=== PATIENT | male | born 1970 | race Caucasian/White ===

== ENCOUNTER 2018-04-28 11:57 | Inpatient (IN) | payer OTHER ==
[~2018-04-28] VITALS: Ht 175.3 cm; Wt 86.4 kg
[2018-04-28] MEDS ORDERED: PANT20TA PO (13:16)
[2018-04-28] MEDS: MORPHINE SULFATE 4 MG/ML SYRINGE IVP ONE ×2 (15:14→16:29)
[2018-04-28] MEDS ORDERED: KETOROLAC TROMETHAMINE 30 MG/ML VIAL IM ONE (15:30)
[2018-04-28] MEDS ORDERED: SODIUM CHLORIDE 0.9% 100 ML ONE (15:44)
[2018-04-28] MEDS ORDERED: IOVERSOL 320 MG/ML 100 ML VIAL ONE (15:44)
[2018-04-28] MEDS ORDERED: FAMOTIDINE 10 MG/ML 2 ML VIAL IVP ONE (15:45)
[2018-04-28] MEDS ORDERED: ONDANSETRON HCL 4 MG/2 ML VIAL IVP ONE (15:45)
[2018-04-28] MEDS ORDERED: PANTOPRAZOLE SODIUM 40 MG/VIAL IVP ONE (15:45)
[2018-04-28 15:51] LABS: APPEARANCE,URINE CLOUDY (CLEAR); BILIRUBIN,URINE NEGATIVE (NEGATIVE); GLUCOSE, URINE (UA) NEGATIVE (NEGATIVE); KETONES,URINE NEGATIVE (NEGATIVE); LEUKOCYTE ESTERASE ,URINE NEGATIVE (NEGATIVE); NITRATE,URINE NEGATIVE (NEGATIVE); OCCULT BLOOD,URINE SMALL (NEGATIVE); PH,URINE 5.5 (5.0-8.0); PROTEIN,URINE SEE CONFIRM (NEGATIVE); UROBILINOGEN,URINE 0.2 mg/dL (<=1.0)
[2018-04-28] MEDS ORDERED: LORazepam 2 MG/ML VIAL IM ONE (16:00)
[2018-04-28 16:24] LABS: BASOPHILS % (AUTO) 0.8 % (0.0-2.0); EOSINOPHILS % (AUTO) 0 % (1.0-6.0); HEMATOCRIT 43.2 % (41-53); HEMOGLOBIN 14.7 g/dL (13.5-17.5); LYMPHOCYTES # (AUTO) 1.1 K/uL (1.0-4.8); LYMPHOCYTES % (AUTO) 11.5 % (22.0-44.0); MEAN CORPUSCULAR HEMOGLOBIN 27.6 pg (26.0-34.0); MEAN CORPUSCULAR HGB CONC 34.1 G/dL (31.0-37.0); MEAN CORPUSCULAR VOLUME 81 fL (80-100); MONOCYTES # (AUTO) 0.5 K/uL (0.1-1.0); MONOCYTES % (AUTO) 4.7 % (2.0-9.0); NEUTROPHILS # (AUTO) 8.1 K/uL (1.8-7.7); PLATELET COUNT (AUTO) 283 K/uL (150-450); RED BLOOD CELL COUNT(AUTO) 5.32 MIL/uL (4.50-5.90); RED CELL DISTRIBUTION WIDTH 17.7 % (11.5-14.5)
[2018-04-28 16:32] LABS: SULFOSALICYLIC ACID,URINE 4+ (Negative)
[2018-04-28 16:33] LABS: RBC,URINE 0-2 /HPF (0-2)
[2018-04-28 16:34] LABS: BACTERIA,URINE Rare /HPF (None Seen); SQUAMOUS EPITHELIAL CELL,UR Few /LPF (None Seen); WBC,URINE 0-2 /HPF (0-5)
[2018-04-28 16:39] LABS: CALCIUM, TOTAL 8.5 mg/dL (8.8-10.5); CREATININE 1.38 mg/dL (0.60-1.30); POTASSIUM 3.9 mmol/L (3.5-5.1)
[2018-04-28 16:44] LABS: ALBUMIN 4.2 g/dL (3.4-5.0); BILIRUBIN,TOTAL 0.5 mg/dL (0.1-1.0)
[2018-04-28] MEDS ORDERED: SODIUM CHLORIDE 0.9% 1,000 ML IV ONE ×2 (17:00→18:00)
[2018-04-28] MEDS ORDERED: FOLIC ACID 1 MG TABLET PO ONE (18:00)
[2018-04-28] MEDS ORDERED: DEXTROSE 5%-0.9% SODIUM CHL 1,000 ML IV ONE (18:00)
[2018-04-28] MEDS ORDERED: THIAMINE HCL 100 MG TABLET PO ONE (18:00)
[2018-04-28] MEDS ORDERED: MORPHINE SULFATE 4 MG/ML SYRINGE IVP ONE (18:00)
[2018-04-28] MEDS ORDERED: METOCLOPRAMIDE HCL 5 MG/ML 2 ML VIAL IVP ONE (18:45)
[2018-04-28] MEDS ORDERED: THIAMINE HCL 100 MG/ML 2ML VIAL IVP ONE (18:45)
[2018-04-28] MEDS ORDERED: DiphenhydrAMINE HCL 50 MG/ML VIAL IVP ONE (18:45)
[2018-04-28] MEDS ORDERED: FOLIC ACID 5 MG/ML 10 ML VIAL IVP ONE (18:45)
[2018-04-28 19:11] LABS: PROTHROMBIN TIME 10.1 SEC (9.4-11.6)
[2018-04-28] MEDS ORDERED: 0.9% SODIUM CHLORIDE 10 ML SYRINGE IVP PRN (19:15)
[2018-04-28] MEDS ORDERED: MORPHINE SULFATE 2 MG/ML SYRINGE IVP PRN ×2 (19:15→23:00)
[2018-04-28] MEDS ORDERED: PANTOPRAZOLE SODIUM 80 MG in SODIUM CHLORIDE 0.9% 100 ML IV SCH (19:15)
[2018-04-28] MEDS ORDERED: ACETAMINOPHEN 325 MG TABLET PO PRN (19:15)
[2018-04-28] MEDS ORDERED: ONDANSETRON HCL 4 MG/2 ML VIAL IVP PRN ×2 (19:15→23:00)
[2018-04-28 21:36] VITALS: BP 143/74
[2018-04-28] MEDS: LORazepam 2 MG/ML VIAL IVP PRN (21:39)
[2018-04-28] MEDS ORDERED: ZOLPIDEM TARTRATE 5 MG TABLET PO PRN (23:00)
[2018-04-28] MEDS ORDERED: HYDROCODONE/ACETAMINOPHEN 5-325 MG TABLET PO PRN (23:00)
[2018-04-28] MEDS ORDERED: MAGNESIUM SULFATE 2 GM, MVI, ADULT NO.1 WITH VIT K 10 ML, THIAMINE HCL 100 MG, FOLIC AC... IV ONE ×5 (23:00)
[2018-04-28] MEDS ORDERED: MAGNESIUM HYDROXIDE SUSPENSION 30 ML UDCUP PO PRN (23:00)
[2018-04-28] MEDS ORDERED: BISACODYL 10 MG RECTAL RECTAL SUPPOSITORY PR PRN (23:00)
[2018-04-28] MEDS: ChlordiazePOXIDE HCL 25 MG CAPSULE PO PRN (23:25)
[2018-04-28 23:30] VITALS: BP 145/76
[2018-04-29] MEDS: ChlordiazePOXIDE HCL 25 MG CAPSULE PO PRN (02:05)
[2018-04-29] MEDS ORDERED: PANTOPRAZOLE SODIUM 80 MG in SODIUM CHLORIDE 0.9% 100 ML IV SCH ×2 (03:00→10:50)
[2018-04-29] MEDS: LORazepam 2 MG/ML VIAL IVP PRN ×3 (03:40→22:57)
[2018-04-29 03:45] VITALS: BP 141/78
[2018-04-29 06:25] LABS: BASOPHILS % (AUTO) 0.4 % (0.0-2.0); EOSINOPHILS % (AUTO) 0 % (1.0-6.0); HEMATOCRIT 34.5 % (41-53); HEMOGLOBIN 11.8 g/dL (13.5-17.5); LYMPHOCYTES % (AUTO) 17.5 % (22.0-44.0); MEAN CORPUSCULAR HGB CONC 34.1 G/dL (31.0-37.0); MEAN CORPUSCULAR VOLUME 82 fL (80-100); MONOCYTES # (AUTO) 0.8 K/uL (0.1-1.0); MONOCYTES % (AUTO) 13.8 % (2.0-9.0); NEUTROPHILS # (AUTO) 3.7 K/uL (1.8-7.7); NEUTROPHILS % (AUTO) 68.3 % (40.0-70.0); PLATELET COUNT (AUTO) 178 K/uL (150-450); RED CELL DISTRIBUTION WIDTH 17.5 % (11.5-14.5)
[2018-04-29 06:54] LABS: ALANINE AMINOTRANSFERASE 32 U/L (12-78); ALBUMIN 3.3 g/dL (3.4-5.0); ALKALINE PHOSPHATASE 119 U/L (46-116); ANION GAP 8 mmol/L (8-16); ASPARTATE AMINOTRANSFERASE 58 U/L (15-37); BILIRUBIN,TOTAL 0.8 mg/dL (0.1-1.0); CALCIUM, TOTAL 7.8 mg/dL (8.8-10.5); CARBON DIOXIDE 27 mmol/L (22-29); CHLORIDE 94 mmol/L (98-107); CREATININE 0.93 mg/dL (0.60-1.30); GLOMERULAR FILTR. RATE CALC > 60 mL/min (>60); GLUCOSE,RANDOM 104 mg/dL (70-110); SODIUM SERUM 129 mmol/L (136-145); TOTAL PROTEIN, SERUM 7.3 g/dL (6.4-8.2); UREA NITROGEN, BLOOD 16 mg/dL (7-18)
[2018-04-29] MEDS ORDERED: ChlordiazePOXIDE HCL 25 MG CAPSULE PO PRN (07:00)
[2018-04-29 07:52] VITALS: BP 136/54
[2018-04-29] MEDS: DOCUSATE SODIUM 100 MG CAPSULE PO SCH ×2 (09:04→20:27)
[2018-04-29] MEDS: ChlordiazePOXIDE HCL 25 MG CAPSULE PO SCH ×4 (09:04→20:27)
[2018-04-29 12:15] VITALS: BP 133/65
[2018-04-29] MEDS: ACETAMINOPHEN 325 MG TABLET PO PRN ×2 (12:38→20:35)
[2018-04-29 15:56] VITALS: BP 130/82
[2018-04-29 19:30] VITALS: BP 131/84
[2018-04-29] MEDS: PANTOPRAZOLE SODIUM 40 MG/VIAL IVP SCH (20:27)
[2018-04-29 23:00] VITALS: BP 125/78
[2018-04-30 04:45] VITALS: BP 136/68
[2018-04-30] MEDS: LORazepam 2 MG/ML VIAL IVP PRN (07:46)
[2018-04-30] MEDS: ACETAMINOPHEN 325 MG TABLET PO PRN (07:46)
[2018-04-30 08:12] VITALS: BP 124/77
[2018-04-30] MEDS: PANTOPRAZOLE SODIUM 40 MG/VIAL IVP SCH (08:25)
[2018-04-30] MEDS: ChlordiazePOXIDE HCL 25 MG CAPSULE PO SCH ×2 (08:25→13:00)
[2018-04-30] MEDS: DOCUSATE SODIUM 100 MG CAPSULE PO SCH (08:27)
[2018-04-30] MEDS ORDERED: THIA100T67 PO (11:12)
[2018-04-30] MEDS ORDERED: FOLI1 PO (11:12)
[2018-05-01] MEDS ORDERED: ChlordiazePOXIDE HCL 10 MG CAPSULE PO PRN (07:00)
[2018-05-01] MEDS ORDERED: ChlordiazePOXIDE HCL 10 MG CAPSULE PO SCH (09:00)
[2018-05-02] MEDS ORDERED: ChlordiazePOXIDE HCL 10 MG CAPSULE PO PRN (07:00)
== END 2018-04-30 12:25 | disposition home or self-care (01) | DRG 392 ==
LOC: EMS 11:58 → 6N 20:00
PROVIDERS: ADMIT Internal Medicine; ATTEND Internal Medicine
DX: K21.0 Gastro-esophageal reflux disease with esophagitis (principal); N17.9 Acute kidney failure, unspecified; F10.10 Alcohol abuse, uncomplicated; F41.9 Anxiety disorder, unspecified; R80.9 Proteinuria, unspecified; Z28.21 Immunization not carried out because of patient refusal; Z91.018 Allergy to other foods; Z79.899 Other long term (current) drug therapy
CPT/HCPCS: 74177; 96372; 96374; 96375; 96376; C9113; G0378; G0480; J1200; J1885; J2060; J2270; J2405; J2765; J3411; J3475; J3490; J7030; J7042; J7050